=== PATIENT | female | born 2005 | race Asian ===

== ENCOUNTER 2024-11-08 10:00 | Emergency (ER) | payer OTHER, SELFPAY ==
[2024-11-08 10:03] VITALS: BP 112/66
--- NOTE | 2024-11-08 11:23 | ED.GENMED ---
History of Present Illness
General
Chief Complaint: Fever
Source: patient
Exam Limitations: none
Time Seen by Provider: 11/08/24 11:09
History of Present Illness
History of Present Illness:
19-year-old otherwise healthy female presents complaining of fever and a rash. This started about 4 days ago. Her temperature at home it has been as high as 101-102. She then developed hives over the arms legs and chest which have seemed to
resolve but she notes increasing swelling to her hands and feet. She denies any mouth discomfort. No known tick bites. No significant potential for tick exposure. No trouble breathing or vomiting. No other complaints at this time
Phy Exam
Physical Exam
Physical Exam:
General: Well-appearing female in no acute respiratory distress
HEENT: Normocephalic atraumatic posterior pharynx without erythema or exudate no oral lesions neck is supple
Heart: Regular rate and rhythm
Lungs: Clear no wheeze
Abdomen is soft nontender
Skin: Urticarial rash over the hands bilaterally and not as prominent over the forearms no petechiae noted
Extremities: No cyanosis
Course
Orders/Labs/Results
Orders:
Orders
11/08/24 10:08
Electrocardiogram (*1) Urgent
Reason for Study: Chest Pain
EKG- Treatment ONCE
11/08/24 11:21
Dexamethasone Sod Phosphate [Decadron] 10 mg IV NOW STA
Diphenhydramine [Benadryl] 25 mg IV NOW STA
Famotidine [Pepcid] 20 mg IV NOW STA
11/08/24 11:23
Test Result ONCE
11/08/24 11:39
Complete Blood Count/With Diff Urgent
Comprehensive Metabolic Panel Urgent
Ehrlichia chaffeensis Ab Panel [S] Urgent
Ferritin Urgent
HCG, Serum Qualitative Screen Urgent
Iron Urgent
Lyme Progressive Urgent
TIBC [Total Iron Binding] Urgent
Babesia Smear [Blood Parasites] Urgent
LEONARD Source: Blood/Venous
Specimen Description:
Abnormal Lab Results
11/08/24
11:39
WBC 11.9 H 10^3/uL
(4.8-10.8)
MCHC 32.9 L g/dL
(33.0-37.0)
Absolute Neuts (auto) 9.7 H 10^3/uL
(1.4-6.5)
Neutrophils % 81.7 H %
(42.2-75.2)
Lymphocytes % 15.8 L %
(20.5-51.1)
Monocytes % 1.3 L %
(1.7-9.3)
BUN 4 L mg/dl
(7-17)
Creatinine 0.4 L mg/dL
(0.6-1.0)
Glucose 120 H mg/dl
(70-99)
Iron 27 L ug/dl
(37-170)
% Saturation 8 L %
(20-50)
11/08/24 11:39
11/08/24 11:39
Vital Signs
Initial and Last Documented VS:
Initial Vital Signs
Temp Pulse Resp BP Pulse Ox
98.4 F 116 16 112/66 96
11/08/24 10:03 11/08/24 10:03 11/08/24 10:03 11/08/24 10:03 11/08/24 10:03
Last Documented Vital Signs
Temp Pulse Resp BP Pulse Ox
98.1 F 106 16 110/76 100
11/08/24 11:52 11/08/24 11:52 11/08/24 11:52 11/08/24 11:52 11/08/24 11:52
MDM/Problems Addressed
Differential Diagnosis Includes:
Fever with rash. Consider viral illness versus tickborne illness. No meningeal signs on exam. No respiratory distress. Will check labs including tickborne illness such as Lyme babesiosis and Ehrlichia. Patient had a reaction for outpatient labs
to be drawn including iron studies and will be added
*Pulse Oximetry
SaO2: 96
Oxygen Mode of Delivery: Room air
Patient hypoxic: no
*Critical Care Note
Total Time (30-74mins, 75-104mins- exclusive of procedures): Not Applicable
Update Note
Update Note:
Labs reviewed without significant finding. Minimal relief after medication here. Still suspect viral or allergy mediated process. Tickborne illness panel pending. She will receive a call if these tests are positive. No indication for admission
but stable for continued antihistamine and steroid.
ED Attending Note
-
Portions of this chart may have been created with voice recognition software.� Occasional wrong word or��sound alike� substitutions may have occurred due to the inherent limitations of voice recognition software.
Discharge Plan
Departure
Patient Disposition: Home (Routine Discharge)
Date of Disposition: 11/08/24
Time of Disposition: 12:47
Patient with high blood pressure during this ER visit?: No
Discharge Problem:
Urticaria
Instructions: Hives, Viral Syndrome (DC)
Prescriptions:
New
prednisone 20 mg tablet
40 mg PO DAILY 5 Days Qty: 10 0RF
Referrals:
Jovanna Avalos MD [Family Provider, Internal Medicine]
Activity Restrictions/Additional Instructions:
Continue Benadryl every 4 hours. Use prednisone starting tomorrow. Return if worse otherwise follow-up with your doctor
Interventions
Interventions:
*Risk Screen - Suicide Last Done: 11/08/24 10:08
*General Assessment Last Done: 11/08/24 12:17
*Neglect/Abuse Screening Last Done: 11/08/24 12:17
*ED- Fall Risk Assessment Last Done: 11/08/24 12:17
*ED COVID-19 Vaccine History Last Done: 11/08/24 12:17
ED- Neurological Assessment Last Done: 11/08/24 11:53
ED-Skin Assessment Last Done: 11/08/24 11:53
Discharge Date and Time
Print Language: [id number]
[2024-11-08] MEDS: PEPCID 20 MG IV (11:43)
[2024-11-08] MEDS: BENADRYL 25 MG IV (11:43)
[2024-11-08] MEDS: DECADRON 10 MG IV (11:43)
[2024-11-08 11:48] LABS: Hematocrit 39.2 % (37.0-47.0); Hemoglobin 12.9 g/dL (12.0-16.0); Mean Corp Hgb Conc. 32.9 g/dL (33.0-37.0); Mean Corpuscular Volume 84.7 fL (81.0-99.0); Nucleated Red Blood Cells % 0 %; Platelet Count 377 10^3/uL (130-400); Red Cell Dist. Width 13.1 % (11.5-14.5)
[2024-11-08 11:52] VITALS: BP 110/76
[2024-11-08 12:00] VITALS: BP 109/67
[2024-11-08 12:04] LABS: HCG, Serum Qualitative Screen Negative
[2024-11-08 12:08] LABS: ALT (SGPT) 11 U/L (0-35); AST (SGOT) 14 U/L (14-36); Albumin 3.8 g/dl (3.5-5.0); Alkaline Phosphatase 74 U/L (38-126); Blood Urea Nitrogen 4 mg/dl (7-17); Calcium 9.1 mg/dl (8.4-10.2); Carbon Dioxide 23 mmol/L (22-30); Chloride 105 mmol/L (98-107); Glucose 120 mg/dl (70-99); Iron 27 ug/dl (37-170); Potassium 4.1 mmol/L (3.5-5.1); Sodium 136 mmol/L (135-145); Total Protein 6.4 g/dl (6.3-8.2); eGFR > 60.00
[2024-11-08 12:17] LABS: Total Iron Binding Capacity 330 ug/dl (265-497)
[2024-11-08 12:39] LABS: Ferritin 41.6 ng/ml (6.24-137)
[2024-11-08 13:00] VITALS: BP 104/66
[2024-11-11 12:06] LABS: Lyme Antibody Screen, EIA Negative (Negative)
[2024-11-13 08:55] LABS: Ehrlichia chaffeensis IgM Ab < 1:16 (< 1:16)
== END 2024-11-08 13:26 | disposition home or self-care (01) ==
LOC: EMR 10:00
PROVIDERS: Physician Assistant; EMERGENCY PHYSICIAN Emergency Medicine; FAMILY PHYSICIAN Internal Medicine
DX: L50.9 Urticaria, unspecified (principal); R50.9 Fever, unspecified
CPT/HCPCS: 96374; 96375; 99284; 80053; 82728; 83540; 83550; 84703; 85025; 86618; 86666; 87015; 87207; 93005